=== PATIENT | male | born 1985 | race Hispanic/Latino ===

== ENCOUNTER 2018-12-23 17:16 | Inpatient (IN) | payer MEDICAID ==
[2018-12-23 18:55] LABS: BASO # 0.1 K/uL (0.0-0.2); EOS # 0.1 K/uL (0.0-0.7); EOS % 2.2 % (0.0-4.0); HEMOGLOBIN 16.2 g/dL (12.0-18.0); LYMPH # 2.7 K/uL (1.0-4.3); MEAN CELL VOLUME 104.3 fL (80.0-94.0); MEAN CORPUSCULAR HEMOGLOBIN 36.6 pg (27.0-31.0); MEAN CORPUSCULAR HGB CONC 35.1 g/dL (33.0-37.0); MEAN PLATELET VOLUME 8.4 fL (7.2-11.7); MONO # 0.3 K/uL (0.0-0.8); MONO % 4.6 % (0.0-10.0); NEUT # 2.8 K/uL (1.8-7.0); NEUT % 47.2 % (50.0-75.0); NRBC % 0.2 % (0.0-2.0); RBC 4.43 Mil/uL (4.40-5.90); RED CELL DISTRIBUTION WIDTH 13.9 % (11.5-14.5); WHITE BLOOD COUNT 5.9 K/uL (4.8-10.8)
[2018-12-23 19:11] LABS: SQUAMOUS EPITHIAL 3 /hpf (0-5); URINE BACTERIA RARE (<OCC); URINE BILIRUBIN NEGATIVE (NEGATIVE); URINE CLARITY Hazy (Clear); URINE COLOR Yellow (YELLOW); URINE GLUCOSE (UA) NORMAL (Normal); URINE LEUKOCYTE ESTERASE NEG Leu/uL (Negative); URINE PROTEIN NEGATIVE (NEGATIVE); URINE UROBILINOGEN NORMAL mg/dL (0.2-1.0)
[2018-12-23 19:16] LABS: URINE BLOOD TRACE (NEGATIVE)
[2018-12-23 19:17] LABS: ALB/GLOB RATIO 1.1 (1.0-2.1); ALBUMIN 5.1 g/dL (3.5-5.0); ALT/SGPT 100 U/L (21-72); AST/SGOT 221 U/L (17-59); BLOOD UREA NITROGEN 7 mg/dL (9-20); CALCIUM 10.4 mg/dl (8.6-10.4); GFR NON-AFRICAN AMERICAN > 60
[2018-12-23 19:28] LABS: BARBITURATES, UR NEGATIVE (NEGATIVE); BENZODIAZEPINES, UR NEGATIVE (NEGATIVE); OPIATES, UR NEGATIVE (NEGATIVE); PHENCYCLIDINE, UR NEGATIVE (NEGATIVE)
--- NOTE | 2018-12-23 20:00 | PCM.BM ---
<Thu Moyer - Last Filed: 12/23/18 19:59> Treatment Plan Problems - Problems identified on initial assessmt Anxiety Related to Substance Abuse Date Initiated: 12/23/18 Time Initiated: 19:59 Assessment reference: NA Status: Active Defensive Coping Date Initiated: 12/23/18 Time Initiated: 19:59 Assessment reference: NA Status: Active Knowledge Deficit : Alcohol Use Date Initiated: 12/23/18 Time Initiated: 20:00 Assessment reference: NA Status: Active Treatment assets and liabiliti Patient Assests: ADL independent, negotiates basic needs, cognitively intact Patient Liabilities: substance abuse - Milieu Protocol Maintain good personal hygiene: daily Encourage regular showers, daily Remind patient to perform daily oral care, daily Assist patient to perform ADL's Conduct patient checks and document Observation sheet: Q15 minutes Maintain personal safety: every shift Educate patient to report safety concerns to staff, every shift Monitor environment for contraband/sharps Medication safety: Monitor for expected outcome, potential side effects: every shift, Assess barriers to learning: every shift, Assess readiness for medication education: every shift <Kam Sarmiento - Last Filed: 12/26/18 08:14> - Diagnosis (1) Alcohol use disorder, severe, dependence Status: Acute Interventions: 12/26/18 08:14 * Assess 7x/week regarding severity of withdrawal * Educate regarding risks, benefits, side effects and alternatives of medications * Use Motivational Interviewing for abstinence * Use CBT for relapse prevention * Medication management for withdrawal symptoms * Encourage medication assisted treatment * <Malu Lehman - Last Filed: 12/26/18 09:06> Family Contact Family involvement: Famliy/SO not involved - Goals for Treatment Patient goals for treatment: Complete detox and transition to outpatient therapy. Discharge/Continuing Care - Education Needs Education Needs: Patient Medication, Patient Diagnosis/Disease Process, Patient Coping Skills, Patient Anger Management skills, Patient Placement options, Patient Community resources - Discharge Discharge Criteria: No longer exhibiting s/s of withdrawal, Reduction of target symptoms Discharge to:: Home - Treatment Team Participation Patient/Family/SO Statement: 12/26/18 09:06 "I wanna go to [facility]." Discussed with Family/SO: No Was Patient/Family/SO present at Treatment Team Meeting: Yes
[2018-12-24 09:10] VITALS: RESP 18
[2018-12-24] MEDS: Multiple Vitamins Tab PO SCH (10:01)
--- NOTE | 2018-12-24 11:04 | PCM.PSYCH ---
Initial Psychiatric Evaluation - Initial Psychiatric Evaluation Type of Admission: Voluntary Legal Status: Capacity Chief Complaint (in patient's own words): I needed help to quit drinking.' History of Present Illness and Precipitating Events: This is a 33-year-old male, who currently lives with his parents, currently unemployed, came to the [facility] ED to get help in alcohol detox. Patient denies any past history of any inpatient psychiatric complications. He denies any history of follow-up with any psychiatrist. He denies any history of detox in the past. Patient reports a long history of drinking. He reports that he has been drinking up to 1 L of vodka daily. Yesterday he consumed more than a pint, he started developing withdrawal symptoms, so he came to the [facility] to get help. He reports withdrawal symptoms including anxiety, sweating, headaches, and shakes. However he denies any feelings of hopelessness or helplessness. He denies any suicidal ideation or any homicidal ideation. He denies any past history of any suicidal ideation or homicidal ideation as well. He denies any auditory or visual hallucinations or any paranoia. He denies any other substance abuse. Past medical history None reported Current Medications: Active Medications Generic Name Dose Route Start Last Admin Trade Name Freq PRN Reason Stop Dose Admin Folic Acid 1 mg 12/24/18 10:00 12/24/18 10:01 Folic Acid PO 1 mg DAILY VALERY Administration Lorazepam 2 mg 12/24/18 08:45 Ativan PO 12/28/18 08:44 Q4 VALERY Taper Lorazepam 1 mg 12/24/18 08:54 12/24/18 10:01 Ativan PO 1 mg Q6 PRN Administration alcohol withdrawal symptoms Multivitamins 1 tab 12/24/18 10:00 12/24/18 10:01 Hexavitamin PO 1 tab DAILY VALERY Administration Thiamine HCl 100 mg 12/24/18 10:00 12/24/18 10:01 Vitamin B1 Tab PO 100 mg DAILY VALERY Administration Trazodone HCl 50 mg 12/23/18 20:15 Desyrel PO HS PRN Insomnia Past Psychiatric History - Past Psychiatric History Previous Treatment History: None Pertinent Medical Hx (Current Medical&Sleep Prob, Allergies): Allergies Allergy/AdvReac Type Severity Reaction Status Date / Time No Known Allergies Allergy Verified 12/23/18 17:38 No Known Home Med 12/23/18 Review of Systems - Review of Systems All systems: reviewed and no additional remarkable complaints except - Psychiatric Psychiatric: Anxiety, Irritability. absent: Suicidal Ideation Mental Status Examination - Personal Presentation Personal Presentation: Looks stated age - Affect Affect: Constricted - Motor Activity Motor Activity: Calm - Reliability in Providing Information Reliability in Providing Information: Fair - Speech Speech: Organized - Mood Mood: Anxious - Formal Thought Process Formal Thought Process: No Impairment - Obsessions/Compulsions Obsessions: No Compulsions: No - Cognitive Functions Orientation: Person, Place, Situation, Time Sensorium: Alert Attention/Concentration: Attentive Abstract Thinking: [place] Estimate of Intelligence: Below average Judgement: Imparied, as evidence by: Poor judgement, Intact, as evidence by: Insight regarding need for hospitalization - Risk Risk: Withdrawal, Diminished functioning DSM 5 DX - DSM 5 DSM 5 Diagnosis: Alcohol use disorder severe Alcohol withdrawal - Recommended/Plan of Treatment Treatment Recommendations and Plan of Treatment: Alcohol use disorder severe Alcohol withdrawal CBT Psychoeducation and supportive therapy and group therapy Ativan taper for alcohol withdrawal (due to high LFTs) Withdrawal medication including thiamine/multivitamin/folic acid Trazodone for insomnia Hydroxyzine for anxiety Neurontin for augmentation - Smoking Cessation Smoking Cessation Initiated: No
[2018-12-25] MEDS ORDERED: Aluminum Hydroxide/Magnesium Hydroxide Susp (30 mL) PO PRN (01:13)
[2018-12-25] MEDS: Multiple Vitamins Tab PO SCH (09:17)
--- NOTE | 2018-12-25 10:23 | PCM.PYCHPN ---
Psychiatric Progress Note - Psychiatric Progress Note Patient seen today, length of contact: 18 min Patient Chief Complaint: "Tired" Problems Identified/Issues Discussed: The pt is seen, chart reviewed, case discussed with staff. The pt is compliant with medications and reports no side-effects. Symptoms are improving but needs more time to stabilize. Pt attends groups and activities. Support given, psycho-education provided. After care discussed. Medication Change: Yes (detox changes daily) Medical Record Reviewed: Yes Mental Status Examination - Cognitive Function Orientation: Person, Place, Situation, Time Memory: Intact Attention: WNL Concentration: Poor Association: WNL Fund of Knowledge: WNL - Mood Mood: Anxious - Affect Affect: Constricted - Speech Speech: Appropriate - Formal Thought Process Formal Thought Process: No Impairment - Suicidal Ideation Suicidal Ideation: No - Homicidal Ideation Homicidal Ideation: No Goal/Treatment Plan - Goal/Treatment Plan Need for Continued Stay: Discharge may exacerbated symptoms, Severe functional impairment Progress Toward Problem(s) and Goals/Treatment Plan: Taper with ativan Gabapentin for augmentation As needed medications All risks, benefits and alternatives of the meds discussed, and the pt agreed and understood. Attend groups and activities Supportive therapy and psychoeducation [place] for abstinence CBT for relapse prevention Encourage MAT Refer to rehab or IOP, and self-help groups Teach healthy lifestyle methods, i.e. diet, exercise, meditation Smoking cessation with UT Nicotine patch if needed 34 min
[2018-12-26] MEDS: Multiple Vitamins Tab PO SCH (09:10)
--- NOTE | 2018-12-26 11:09 | PCM.PYCHPN ---
Psychiatric Progress Note - Psychiatric Progress Note Patient seen today, length of contact: 17 min Patient Chief Complaint: "Tired" Problems Identified/Issues Discussed: The pt is seen, chart reviewed, case discussed with staff. The pt is compliant with medications and reports no side-effects. Symptoms are improving but needs more time to stabilize. Pt attends groups and activities. Support given, psycho-education provided. After care discussed. Medication Change: Yes (detox changes daily) Medical Record Reviewed: Yes Mental Status Examination - Cognitive Function Orientation: Person, Place, Situation, Time - Mood Mood: Anxious - Affect Affect: Constricted - Speech Speech: Appropriate - Formal Thought Process Formal Thought Process: No Impairment - Suicidal Ideation Suicidal Ideation: No - Homicidal Ideation Homicidal Ideation: No Goal/Treatment Plan - Goal/Treatment Plan Need for Continued Stay: Discharge may exacerbated symptoms, Severe functional impairment Progress Toward Problem(s) and Goals/Treatment Plan: Taper with ativan Gabapentin for augmentation As needed medications All risks, benefits and alternatives of the meds discussed, and the pt agreed and understood. Attend groups and activities Supportive therapy and psychoeducation [place] for abstinence CBT for relapse prevention Encourage MAT Refer to rehab or IOP, and self-help groups Teach healthy lifestyle methods, i.e. diet, exercise, meditation Smoking cessation with [place] Nicotine patch if needed 34 min
[2018-12-27 06:20] VITALS: PULSE 80; O2SAT 100
[2018-12-27] MEDS: Multiple Vitamins Tab PO SCH (09:37)
[2018-12-27 10:32] VITALS: BP 115/83; TEMP 97.6
--- NOTE | 2018-12-27 11:46 | PCM.PYCHDC ---
Mental Status Examination - Mental Status Examination Orientation: Person, Place, Situation, Time Memory: Intact Mood: Neutral Affect: Constricted Speech: Soft Attention: WNL Concentration: WNL Association: WNL Fund of Knowledge: WNL Formal Thought Process: No Impairment Description of patient's judgement and insight: good, fair Psychotic Thoughts and Behaviors: denies any AVH Suicidal Ideation: No Current Homicidal Ideation?: No Discharge Summary - Discharge Note Reason for Hospitalization: This is a 33-year-old male, who currently lives with his parents, currently unemployed, came to the [facility] ED to get help in alcohol detox. Patient denies any past history of any inpatient psychiatric complications. He denies any history of follow-up with any psychiatrist. He denies any history of detox in the past. Patient reports a long history of drinking. He reports that he has been drin kirstin up to 1 L of vodka daily. Yesterday he consumed more than a pint, he started developing withdrawal symptoms, so he came to the [facility] to get help. He reports withdrawal symptoms including anxiety, sweating, headaches, and shakes. However he denies any feelings of hopelessness or helplessness. He denies any suicidal ideation or any homicidal ideation. He denies any past history of any suicidal ideation or homicidal ideation as well. He denies any auditory or visual hallucinations or any paranoia. He denies any other substance abuse. Consultations:: List each consultation separately and include: 1. Reason for request. 2. Findings. 3. Follow-up Summary of Hospital Course include:: 1. Description of specific treatment plan utilized for patients during their course of treatmen. 2. Summarize the time- course for resolution of acute symptoms and/or regressed behaviors. 3. Describe issues identified and worked on during hospitalization. 4. Describe medication utilized. 5. Describe medical problems identified and treated. 6. Reassessment of suicide risk Summary of Hospital Course: This is a 33-year-old male, who currently lives with his parents, currently unemployed, came to the [facility] ED to get help in alcohol detox. Patient denies any past history of any inpatient psychiatric complications. He denies any history of follow-up with any psychiatrist. He denies any history of detox in the past. Patient reports a long history of drinking. He reports that he has been drinking up to 1 L of vodka daily. Yesterday he consumed more than a pint, he started developing withdrawal symptoms, so he came to the [facility] to get help. He reports withdrawal symptoms including anxiety, sweating, headaches, and shakes. However he denies any feelings of hopelessness or helplessness. He denies any suicidal ideation or any homicidal ideation. He denies any past history of any suicidal ideation or homicidal ideation as well. He denies any auditory or visual hallucinations or any paranoia. He denies any other substance abuse. Past medical history None reported - Final Diagnosis (DSM 5) Condition upon Discharge: GOOD DSM 5: Alcohol use disorder severe Alcohol withdrawal Disposition: HOME/ ROUTINE Follow-up Treatment Plan: Alcohol use disorder severe Alcohol withdrawal CBT Psychoeducation and supportive therapy and group therapy Ativan taper for alcohol withdrawal (due to high LFTs) Withdrawal medication including thiamine/multivitamin/folic acid Trazodone for insomnia Hydroxyzine for anxiety Neurontin for augmentation - Smoking Cessation Smoking Cessation Medication prescribed: No - Antipsychotic Medications Pt discharged on 2 or more routine antipsychotic medications: No
--- NOTE | 2018-12-29 15:37 | C.PDOC ---
History Of Present Illness 33-year-old male presents to the ED requesting alcohol detox. Patient states his last drink was at 1630 today. Patient denies suicidal/homicidal ideation and does not offer any additional complaints at this time. Time Seen by Provider: 12/23/18 17:40 Chief Complaint (Nursing): Substance Abuse History Per: Patient History/Exam Limitations: intoxication Onset/Duration Of Symptoms: Hrs Current Symptoms Are (Timing): Still Present Suicide/Self Injury Attempted (Context): None Modifying Factor(s): Alcohol Associated Symptoms: denies: Suicidal Thoughts, Suicidal Plan Involuntary Hold By: None Recent travel outside of the [place]: No Additional History Per: Patient Past Medical History Reviewed: Historical Data, Nursing Documentation, Vital Signs Vital Signs: Last Vital Signs Temp 97.6 F 12/27/18 09:00 Pulse 80 12/27/18 09:00 Resp 18 12/27/18 09:00 BP 115/83 12/27/18 09:00 Pulse Ox 100 12/27/18 09:00 Primary Care Provider: Attila Hearn - Medical History PMH: No Chronic Diseases Surgical History: No Surg Hx Family History: States: Unknown Family Hx - Social History Hx Alcohol Use: Yes Hx Substance Use: Yes - Immunization History Hx Tetanus Toxoid Vaccination: No Hx Influenza Vaccination: No Hx Pneumococcal Vaccination: No Review Of Systems Psych: Positive for: Other (alcohol detox ). Negative for: Suicidal ideation Physical Exam - Physical Exam Appears: Non-toxic, No Acute Distress Skin: Normal Color, Warm, Dry Head: Atraumatic, Normacephalic Eye(s): bilateral: Normal Inspection Oral Mucosa: Moist Neck: Supple Chest: Symmetrical, No Deformity, No Tenderness Cardiovascular: Rhythm Regular, No Murmur Respiratory: Normal Breath Sounds, No Rales, No Rhonchi, No Wheezing Gastrointestinal/Abdominal: Soft, No Tenderness Extremity: Normal ROM Neurological/Psych: Oriented x3 ED Course And Treatment - Laboratory Results Result Diagrams: 12/23/18 18:49 12/23/18 18:49 Lab Results: Total Bilirubin 1.2 mg/dL (0.2-1.3) 12/23/18 18:49 AST 221 U/L (17-59) H 12/23/18 18:49 ALT 100 U/L (21-72) H 12/23/18 18:49 Alkaline Phosphatase 134 U/L (38-126) H 12/23/18 18:49 Total Protein 9.5 g/dL (6.3-8.3) H 12/23/18 18:49 Albumin 5.1 g/dL (3.5-5.0) H 12/23/18 18:49 Globulin 4.4 gm/dL (2.2-3.9) H 12/23/18 18:49 Albumin/Globulin Ratio 1.1 (1.0-2.1) 12/23/18 18:49 Urine Color Yellow (YELLOW) 12/23/18 19:05 Urine Clarity Hazy (Clear) 12/23/18 19:05 Urine pH 5.0 (5.0-8.0) 12/23/18 19:05 Ur Specific Cameron 1.018 (1.003-1.030) 12/23/18 19:05 Urine Protein Negative mg/dL (NEGATIVE) 12/23/18 19:05 Urine Glucose (UA) Normal mg/dL (Normal) 12/23/18 19:05 Urine Ketones Negative mg/dL (NEGATIVE) 12/23/18 19:05 Urine Blood Trace (NEGATIVE) H 12/23/18 19:05 Urine Nitrate Negative (NEGATIVE) 12/23/18 19:05 Urine Bilirubin Negative (NEGATIVE) 12/23/18 19:05 Urine Urobilinogen Normal mg/dL (0.2-1.0) 12/23/18 19:05 Ur Leukocyte Esterase Neg Anika/uL (Negative) 12/23/18 19:05 Urine WBC (Auto) 3 /hpf (0-5) 12/23/18 19:05 Urine RBC (Auto) 1 /hpf (0-3) 12/23/18 19:05 Ur Squamous Epith Cells 3 /hpf (0-5) 12/23/18 19:05 Urine Bacteria Rare (<OCC) 12/23/18 19:05 O2 Sat by Pulse Oximetry: 100 (on RA) Pulse Ox Interpretation: Normal Medical Decision Making Medical Decision Making: Progress: Bloodwork and urinalysis ordered and reviewed. med cleared accepted lfts 2/2 etoh absue abd sof t no ttp advise outpt uf. Disposition - Disposition Disposition: HOSPITALIZED Disposition Time: 15:00 Condition: GOOD - Clinical Impression Clinical Impression: Alcohol use disorder, severe, dependence - Scribe Statement The provider has reviewed the documentation as recorded by the Scribe (Abby Giles) Provider Attestation: All medical record entries made by the Scribe were at my direction and personally dictated by me. I have reviewed the chart and agree that the record accurately reflects my personal performance of the history, physical exam, medical decision making, and the department course for this patient. I have also personally directed, reviewed, and agree with the discharge instructions and disposition. Decision To Admit - Pt Status Changed To: Hospital Disposition Of: Inpatient - Admit Certification Admit to Inpatient:: After my assessment, the patient will require hospitalization for at least two midnights. This is because of the severity of symptoms shown, intensity of services needed, and/or the medical risk in this patient being treated as an outpatient. - InPatient: Physician Admission Certification: I certify that this patient requires 2 or more midnights of care for the following reason:: need detox - . Bed Request Type: Detox Admitting Physician: Yevgeniy Ferguson Patient Diagnosis: Alcohol use disorder, severe, dependence
== END 2018-12-27 12:00 | disposition home or self-care (01) | DRG 775 ==
LOC: C.ER 17:16 → C.7D 19:34
PROVIDERS: ADMIT Psychiatry & Neurology Psychiatry; ATTEND Psychiatry & Neurology Psychiatry
DX: F10.239 Alcohol dependence with withdrawal, unspecified (principal); F41.9 Anxiety disorder, unspecified